=== PATIENT | male | born 1960 | race Caucasian/White ===

== ENCOUNTER 2023-11-06 08:43 | Observation (INO) ==
--- NOTE | 2023-10-08 09:41 | PAT Medication Instructions ---
Medication Instructions Date of Service October 08, 2023 Home Medications ashwagandha extract 120 mg capsule 500 mg PO QPM omega 8-qwm-ubr-fish oil 1,000 mg (120 mg-180 mg) capsule (Fish Oil) 1 cap PO HS shilajit 250 mg capsule 250 mg PO QAM MEDICATION INSTRUCTIONS: STOP taking 2 weeks before surgery ashwagandha extract 120 mg capsule 500 mg PO QPM omega 5-vqa-uja-fish oil 1,000 mg (120 mg-180 mg) capsule (Fish Oil) 1 cap PO HS shilajit 250 mg capsule 250 mg PO QAM Other Notes Remember: NOTHING TO EAT OR DRINK AFTER MIDNIGHT If you have any questions please call us at [phone] or [phone] or [phone] or [phone]
--- NOTE | 2023-10-13 09:01 | Anesthesiology Consultation ---
Date of Service October 13, 2023 Assessment & Plan (1) Encounter for pre-operative examination: - Outpatient joint assessment: Patient is currently scheduled for inpatient pathway. If re-evaluated and patient/surgeon requests outpatient pathway, patient is acceptable candidate for outpatient joint program from anesthesia standpoint pending surgeon's office assessment of pt motivation/support/completion of same day joint program preop requirements. Chart Review Chart Review: Acceptable Risk for Surgery and Patient seen in Pre Admission Testing Teaching & Discussion Pre-Anesthesia Teaching/Discussion Notes: Instructed NPO after midnight before surgery, except medications with 15 cc of water. Medication instructions provided according to the PAT guidelines. History Surgery Operation Date: 11/06/23 10:05 Proposed Procedures p Left Total Knee Arthroplasty - Amadeo Cervantes MD Height/Weight Height: 5 ft 6 in Weight: 92.2 kg Allergies Allergy/AdvReac Type Severity Reaction Status Date / Time No Known Allergies Allergy Unverified 10/13/23 09:10 Medications Home Medications Medication Instructions Recorded Confirmed Last Taken ashwagandha extract 120 mg capsule 500 mg PO QPM 10/06/23 10/06/23 Unknown omega 6-kjo-kvc-fish oil 1,000 mg 1 cap PO HS 10/06/23 10/06/23 Unknown (120 mg-180 mg) capsule (Fish Oil) shilajit 250 mg capsule 250 mg PO QAM 10/06/23 10/06/23 Unknown Past Medical History Medical History (Updated 10/13/23 @ 09:20 by Nina Bruce PA-C) Borderline hypertension (05/2023) reports at PCP visit was told this, has since lost 25 pounds with diet and exercise and states bp is 120-130s/80-90s Hx of cleft palate Hx of colonic polyps Hx of fracture of leg left Sleep-disordered breathing Patient denies h/o stroke, seizures, heart attack, heart failure, DM, blood clot s/DVTs or blood transfusions. Exercise / Class Metabolic Activity II 4-5 Yardwork/Stairs/Walk up hill (denies chest discomfort or shortness of breath with one flight of stairs) Past Family History Family History Other No pertinent family history Past Surgical History Surgical History H/O arthroscopic knee surgery (1989) x 2; left 1981, 1989 Hx of appendectomy (1976) Hx of colonoscopy with polypectomy Hx of oral surgery (1967) several to repair cleft palate Past Anesthesia History No Hx of Anesthesia Complications and No Family Hx of Anesthesia Complications History of PONV No Hx of PONV and No Hx of Motion Sickness Social History Smoking Status: Never smoker Do You Dip or Chew Tobacco: No Hx Alcohol Use: Yes alcohol intake frequency: a few times a month Hx Substance Use: No substance use type: does not use Review of Systems Patient denies chest pain, shortness of breath, dyspnea on exertion, reflux, fever, chills, cough, wheezing, or palpitations. Physical Exam Vital Signs Vitals BP 171/98 left arm sitting manual; 168/96 left arm sitting manual after patient rested with feet flat on floor P 66 TEMP 98.0 SP02 96% on RA RESP 17 Physical Patient resting comfortably in chair in no acute distress, alert and oriented, responding appropriately throughout visit Full cervical extension range of motion without pain TMD 3.5 finger breadths Mallampati Score 2 Dentition: implant left lower side, denies chipped or loose teeth, caps/crowns, or bridges Lungs: normal respiratory effort. Good air movement, clear throughout to auscultation, no adventitious breath sounds Cardiac: regular rate and rhythm, no murmurs noted Carotid arteries: negative bruit bilat Lab Results Anesthesia Preop Results Results Anesthesia Widget: WBC 6.91 K/ul (4.8-10.8) 10/13/23 Hgb 15.4 g/dl (14.0-18.0) 10/13/23 Hct 46.7 % (42.0-52.0) 10/13/23 Plt 233 K/uL (130-400) 10/13/23 Na 137 mmol/L (136-145) 10/13/23 K 4.0 mmol/L (3.5-5.1) 10/13/23 Cl 103 mmol/L (98-107) 10/13/23 CO2 29 mmol/L (21-32) 10/13/23 BUN 18 mg/dl (6-23) 10/13/23 Creat 1.15 mg/dl (0.6-1.4) 10/13/23 Glucose Level 95 mg/dl (70-99(Fasting)) 10/13/23 PT 10.8 Seconds (9.0-12.0) 10/13/23 PTT 28 Seconds (21-31) 10/13/23 INR 1.0 (0.9-1.1) 10/13/23 Urine Color Yellow 10/13/23 Urine Appearance Clear (Clear) 10/13/23 Urine pH 6.0 (4.5-7.5) 10/13/23 Urine Specific [place] 1.021 (1.000-1.030) 10/13/23 Urine Protein Negative (Negative) 10/13/23 Urine Glucose (UA) Negative (Negative) 10/13/23 Urine Ketones Negative (Negative) 10/13/23 Urine Blood Negative (Negative) 10/13/23 Urine Nitrite Negative (Negative) 10/13/23 Urine Bilirubin Negative (Negative) 10/13/23 Urine Urobilinogen Negative (Negative) 10/13/23 Urine Leukocyte Esterase Negative (Negative) 10/13/23 Blood Type B Positive 10/13/23 Antibody Screen NEGATIVE 10/13/23 Testing Electrocardiogram Date: 10/13/23 NSR, rate 63 bpm Chest X-Ray Date: 10/13/23 No acute process.
[~2023-11-06 08:43] MED LIST: BUPIVACAINE 0.5 % 5 MG/1 ML PF 10ML VIAL ONE; ROPIVACAINE 0.5% 5 MG/ML 30 ML VIAL ONE; dexAMETHasone 4 MG TAB PO SCH
[2023-11-06] MEDS: LR 60ML/HR IV SCH (08:44)
--- NOTE | 2023-11-06 09:01 | History & Physical Bridge Note ---
Date of Service November 06, 2023 History & Physical Bridge Note I have examined the patient, reviewed the History & Physical and in the interval since the performance of the History & Physical I have noted the following changes of clinical significance: no changes noted
[2023-11-06] MEDS: dexAMETHasone**PF** 10 MG/ML VIAL IV SCH (09:03)
[2023-11-06] MEDS: ACETAMINOPHEN 500 MG TAB PO SCH ×2 (09:03→15:46)
[2023-11-06] MEDS: CeleBREX 200 MG CAP PO SCH (09:03)
[2023-11-06] MEDS: traMADol HCL 50 MG TABLET PO SCH (09:03)
[2023-11-06] MEDS: FAMOTIDINE 20 MG TAB PO SCH (09:03)
[2023-11-06] MEDS: Scopolamine 1 MG TDSY TD SCH (09:04)
[2023-11-06] MEDS: LR 500ML BOLUS, THEN 15ML/HR IV SCH (09:04)
[2023-11-06] MEDS ORDERED: MIDAZOLAM HCL 1 MG/ML 2ML VIAL ONE (09:22)
[2023-11-06] MEDS ORDERED: fentaNYL citrate PF 100 MCG/2 ML VIAL ONE (09:22)
[2023-11-06] MEDS ORDERED: ONDANSETRON INJ 2 MG/ML 2 ML VIAL ONE (09:23)
[2023-11-06] MEDS ORDERED: PROPOFOL IV EMULSION 10 MG/ML 20 ML VIAL IV ONE ×2 (09:23→11:18)
[2023-11-06] MEDS ORDERED: HYDROmorphone INJ 1 MG/ML SYRINGE IV PRN (09:43)
[2023-11-06] MEDS ORDERED: ONDANSETRON INJ 2 MG/ML 2 ML VIAL IV PRN ×2 (09:43→13:48)
[2023-11-06] MEDS ORDERED: fentaNYL citrate PF 100 MCG/2 ML VIAL IV PRN (09:43)
[2023-11-06] MEDS ORDERED: ATROPINE SULFATE 0.1 MG/ML 10ML SYR IV PRN (09:43)
[2023-11-06] MEDS ORDERED: ePHEDrine sulfate 50 MG/ML AMP IV PRN (09:43)
[2023-11-06] MEDS: TRANEXAMIC ACID 1,000 MG **IV Pre-op IV SCH (09:45)
[2023-11-06] MEDS: ceFAZolin 2000MG 2,000 MG/15 ML SYR IV SCH ×2 (10:10→17:16)
[2023-11-06] MEDS: ORTHO JOINT ANESTHETIC ONE (10:36)
[2023-11-06] MEDS ORDERED: ePHEDrine sulfate 50 MG/5 ML SYR ONE (10:57)
--- OUTSIDE RECORDS SUMMARY | 2023-11-06 11:24 | External Medical Summary | Summary of Care ---
Author Name Unknown Organization [facility] Address [address] [place] [address] Phone [phone] Care Team Providers Care Butter Wrapper Name Role Phone Amadeo Rose MD Primary Care Provider + Encounter Details Date Type Department Care Team (Late st Contact Info) Description 10/27/2023 Telephone Family Practice [facility] [address] [facility] [id number] [facility] [address] [facility] [address] Allergies No known active allergiesdocumented as of this encounter (statuses as of 10/31/2023) Medications Medication Sig Dispensed Refills Start Date End Date Status Fish Oil 1000 MG Oral Capsule Take 1 Capsule by mouth in the morning. Active Ascorbic Acid ER 500 MG Oral Capsule Extended Release Take 500 mg by mouth daily. Active Ashwagandha 125 MG Oral Capsule Take by mouth. Active documented as of this encounter (statuses as of 10/31/2023) Active Problems Problem Noted Date Diagnosed Date Dyslipidemia, goal LDL below 130 11/29/2021 Well adult exam 05/05/2015 Overview: 09/24 colon WNL jamari 5y 06/21 COLON-10mm tubular adenoma. Jamari 3y. 04/22 ACC risk 5.5 % using 2015 labs Neoplasm of uncertain behavior of skin 04/28/201 5 Actinic keratosis 08/02/2014 Other seborrheic keratosis 08/02/2014 Family history of melanoma 05/05/2014 Obesity, Class I, BMI 30.0-34.9 (see actual BMI) 06/15/2013 DYSLIPIDEMIA, GOAL TO BE DETERMINED 03/21/2009 Overview: Per Lipid Taxonomy. ADVANCE DIRECTIVE INFORMATION 04/25/2006 Overview: Pt took booklet. Alcohol abuse, in remission 04/25/2006 FAMILY HX-GI MALIGNANCY 04/25/2006 documented as of this encounter (statuses as of 10/31/2023) Resolved Problems Problem Noted Date Diagnosed Date Resolved Date Prediabetes 05/20/2017 11/19/2018 Overview: Per Prediabetes protocol #1 Mixed dyslipidemia 04/25/2006 9 Overview: Per Lipid Taxonomy. documented as of this encounter (statuses as of 10/31/2023) Immunizations Name Administration Dates Next Due PPD 01/26/2008 Seasonal Influenza, PF, 6 M & above, IM , (FluLaval or Fluzone) 01/26/2021,02/12/2020,02/27/2019,2018 Seasonal Influenza, Split, I IV3, With Preserve, Inj 01/06/2016,01/19/2015,01/19/2014 TDAP (age 10 and older)(Boostrix) 05/23/2016 TDAP, Age 7 and older, IM (Adacel) 04/25/2006 Zoster Vaccine Recombinant (Shingrix) 08/22/2022 ,05/23/2022 documented as of this encounter Social History Tobacco Use Types Packs/Day Years Used Date Smoking Tobacco: Never Smokeless Tobacco: Never Comments:Pt states he tried it for approx. 6 months. Alcohol Use Standard Drinks/Week Comments Yes 0 (1 standard drink = 0.6 oz pure alcohol) 3-6 weekends 2 nights.. hx of heavy use PHQ-2 Answer Date Recorded PHQ Adult Total Score 0 05/29/2023 Hunger Vital Sign Answer Date Recorded Within the past 12 months, y ou worried that your food would run out before you got the money to buy more. Never true 05/23/19 23 Within the past 12 months, t he food you bought just didn't last and you didn't have money to get more. Never true 05/23/2022 Utilities Answer Date Recorded Do you have trouble paying y our heating, water, or electric bill? (Adult - for ages 18 years and over) Not on file 09/23/2023 Is your family able to pay t he heat, water, or electric bill? (Household - for ages 0-17 years) Not on file 09/23/2023 Does your family have access to good internet? (Household - for ages 0-17 years) Not on file 09/23/2023 Social Connections Answer Date Recorded How often do you feel lonely or isolated from those around you? (Adult - for ages 18 years and over) Not on file 09/23/2023 Sex and Gender Information Value Date Recorded Sex Assigned at Male 05/23/2022 9:26 AM EST Gender Identity Male 05/23/2022 9:26 AM EST Sexual Orientation Straight 05/23/2022 9: 26 AM EST Job Start Date Occupation Industry Not on file Not on file Not on file documented as of this encounter Miscellaneous Notes * Telephone Encounter - Bre Rose CRNP - 10/31/2023 10:09 AM EDT We received copy of his OV note - form and results for pre op already reviewed signed and faxed * Telephone Encounter - Anne-Marie Mckenzie LPN - 10/31/2023 8:41 AM EDT Received [facility] pre op results--placed in e [employer] mailbox. * Telephone Encounter - Anne-Marie Mckenzie LPN - 10/28/2023 11:51 AM EDT Sent pre op form to fax number on form. * Telephone Encounter - Anne-Marie Mckenzie LPN - 10/27/2023 9:30 AM EDT Called [facility]-- LM to have them fax the below information. Awaiting to receive. * Telephone Encounter - Bre Rose CRNP - 10/27/2023 9:06 AM EDT I have his [facility] form on my desk Please contact [facility] to obtain results of his preadmission testing from 10/13/23 - labs, EKG, CXR. Thank you. documented in this encounter Plan of Treatment Upcoming Encounters Date Type Department Care Team (Late st Contact Info) Description 06/03/2024 8:20 AM EST Office Visit Family Practice [facility] [address] [place] [id number] Amadeo Rose MD [address] [place] [address] Scheduled Procedures Name Priority Associated Diagnoses Date/Ti me COLONOSCOPY FLEXIBLE PROXIMAL DIAGNOSTIC Recall History of colon polyps Health Maintenance Due Date Last Done Comments Cologuard 2006 Fecal Occult Blood Test 2006 Sigmoidoscopy 2006 Influenza Vaccine (FLU shot) (#1) 2023 01/26/2021, 02/12/2020, 02/27/2019, Additional history exists Depression Screening 05/29/2024 05/29/2023 Colonoscopy 09/12/2024 09/13/2019, 11/2019, 06/10/2016, Additional history exists Colorectal Cancer Screening 09/12/2024 DTaP,Tdap,and Td Vaccines (3 - Td or Tdap) 05/23/2026 05/23/2016, 04/25/2006 Diabetes Screening 06/23/2026 06/24/2023, 0 11/19/2021, 10/13/2018, Additional history exists Lipid Panel 06/23/2028 06/24/2023, 11/05, 10/13/2018, Additional history exists RETIRED - COLONOSCOPY-EVERY 5 YRS AGES 18-100 Discontinued 09/13/2019, 09/13/2019, 06/10/2016, Additional history exists Zoster Vaccines Completed 08/22/2022, 05/23/2022 COVID-19 Vaccine Discontinued HPV (Gardasil) Vaccine Aged Out No lo nger eligible based on patient's age to complete this topic Hepatitis B Vaccine Aged Out No longe r eligible based on patient's age to complete this topic MENINGOCOCCAL (MENACTRA/MENVEO) Aged Out No longer eligible based on patient's age to complete this topic Pneumococcal Vaccine: Pediatrics (0 to 5 Years) and At-Risk Patients (6 to 64 Years) Aged Out No longer eligible based on patient's age to complete this topic documented as of this encounter Medical Devices Not on filedocumented as of this encounter Care Teams Butter Wrapper Relationship Specialty Start Date End Date Amadeo Rose MD [address] [place] [address] PCP - General Family Medicine 05/05/14 documented as of this encounter
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
--- OUTSIDE RECORDS SUMMARY | 2023-11-06 11:24 | External Medical Summary | Summary of Care ---
Author Name Unknown Organization [facility] Address [address] [place] [address] Phone [phone] Care Team Providers Care Foam Cutting Supervisor Name Role Phone Amadeo Rose MD Primary Care Provider + Encounter Details Date Type Department Care Team (Late st Contact Info) Description 10/27/2023 Telephone Family Practice [facility] [address] [facility] [id number] [address] [facility] [address] Allergies No known active allergiesdocumented as of this encounter (statuses as of 10/28/2023) Medications Medication Sig Dispensed Refills Start Date End Date Status Fish Oil 1000 MG Oral Capsule Take 1 Capsule by mouth in the morning. Active Ascorbic Acid ER 500 MG Oral Capsule Extended Release Take 500 mg by mouth daily. Active Ashwagandha 125 MG Oral Capsule Take by mouth. Active documented as of this encounter (statuses as of 10/28/2023) Active Problems Problem Noted Date Diagnosed Date [...] as of this encounter (statuses as of 10/28/2023) Resolved Problems Problem Noted Date Diagnosed Date Resolved Date Prediabetes 05/20/2017 11/19/2018 Overview: Per Prediabetes protocol #1 Mixed dyslipidemia 04/25/2006 9 Overview: Per Lipid Taxonomy. documented as of this encounter (statuses as of 10/28/2023) Immunizations Name Administration Dates Next Due PPD [...] encounter Miscellaneous Notes * Telephone Encounter - Anne-Marie Mckenzie LPN - 10/28/2023 11:51 AM EDT Sent pre op form to fax number on form. * Telephone Encounter - Anne-Marie Mckenzie LPN - 10/27/2023 9:30 AM EDT Called [facility]-- to have them fax the below information. [...] 06/03/2024 8:20 AM EST Office Visit Family [facility] [address] [place] [address] Amdaeo Rose MD [address] [place] [address] Scheduled Procedures Name Priority Associated Diagnoses Date/Ti me COLONOSCOPY FLEXIBLE PROXIMAL DIAGNOSTIC Recall History of colon polyps Health Maintenance Due Date Last Done Comments Cologuard 2006 Fecal Occult Blood Test 2006 Sigmoidoscopy 2006 Influenza Vaccine (FLU shot) (#1) 2023 01/26/2021, 02/12/2020, 02/27/2019, Additional history exists Depression Screening 05/29/2024 05/29/2023 Colonoscopy 09/12/2024 09/13/2019, 06/0 11/2019, 06/10/2016, Additional history exists Colorectal Cancer Screening 09/12/2024 DTaP,Tdap,and Td Vaccines (3 - Td or Tdap) 05/23/2026 05/23/2016, 04/25/2006 Diabetes Screening 06/23/2026 06/24/2023, 0 11/19/2021, 10/13/2018, Additional history exists Lipid Panel 06/23/2028 06/24/2023, 0808/2021, 10/13/2018, Additional history exists RETIRED - COLONOSCOPY-EVERY [...] filedocumented as of this encounter Care Teams Foam Cutting Supervisor Relationship Specialty Start Date End Date Amadeo Rose MD [address] [place] [address] PCP - General Family Medicine 05/05/14 documented as of this encounter
--- OUTSIDE RECORDS SUMMARY | 2023-11-06 11:24 | External Medical Summary | Summary of Care ---
Author Name Unknown Organization [facility] Address [address] [place] [address] Phone [phone] Care Team Providers Care Quality Review Specialist Name Role Phone Amadeo Rose MD Primary Care Provider + Encounter Details Date Type Department Care Team (Late st Contact Info) Description 11/03/2023 Orders Only [facility] Research Department [address] [place] [address] Jazmín Hawkins CHRA [employer] [facility] Other*[id number] Allergies No known active allergiesdocumented as of this encounter (statuses as of 11/03/2023) Medications Medication Sig Dispensed Refills Start Date End Date Status Fish Oil 1000 MG Oral Capsule Take 1 Capsule by mouth in the morning. Active Ascorbic Acid ER 500 MG Oral Capsule Extended Release Take 500 mg by mouth daily. Active Ashwagandha 125 MG Oral Capsule Take by mouth. Active documented as of this encounter (statuses as of 11/03/2023) Active Problems Problem Noted Date Diagnosed Date Dyslipidemia, goal LDL below 130 11/29/2021 Well adult exam 05/05/2015 Overview: 09/24 colon WNL jamari 5y 06/21 COLON-10mm tubular adenoma. Jamari 3y. 04/22 ACC risk 5.5 % using 2015 labs Neoplasm of uncertain behavior of skin 5 Actinic keratosis 08/02/2014 Other seborrheic keratosis 08/02/2014 Family history of melanoma 05/05/2014 Obesity, Class I, BMI 30.0-34.9 (see actual BMI) 06/15/2013 DYSLIPIDEMIA, GOAL TO BE DETERMINED 03/21/2009 Overview: Per Lipid Taxonomy. ADVANCE DIRECTIVE INFORMATION 04/25/2006 Overview: Pt took booklet. Alcohol abuse, in remission 04/25/2006 FAMILY HX-GI MALIGNANCY 04/25/2006 documented as of this encounter (statuses as of 11/03/2023) Resolved Problems Problem Noted Date Diagnosed Date Resolved Date Prediabetes 05/20/2017 11/19/2018 Overview: Per Prediabetes protocol #1 Mixed dyslipidemia 04/25/2006 9 Overview: Per Lipid Taxonomy. documented as of this encounter (statuses as of 11/03/2023) Immunizations Name Administration Dates Next Due PPD [...] on file documented as of this encounter Plan of Treatment Upcoming Encounters Date Type Department Care Team (Late st Contact Info) Description 06/03/2024 8:20 AM EST Office Visit Family Practice [facility] [address] [facility] [place] [address] Amadeo Rose MD [address] [facility] [place] [address] Scheduled Orders Name Type Priority Associated Diagnoses Orde r Schedule MYCODE INITIAL ADULT Lab Routine MyCode Research Other*[id number] Expected: 11/03/2023 (Approximate), Expires: 11/22/2024 Scheduled Procedures Name Priority Associated Diagnoses Date/Ti [...] Not on filedocumented as of this encounter Visit Diagnoses Diagnosis MyCode Research Other*[id number] documented in this encounter Care Teams Quality Review Specialist Relationship Specialty Start Date End Date Amadeo Rose MD [address] [place] [address] PCP - General Family Medicine 05/05/14 documented as of this encounter
--- OUTSIDE RECORDS SUMMARY | 2023-11-06 11:24 | External Medical Summary | Summary of Care ---
Author Name Unknown Organization [facility] Address [address] [place] [address] Phone [phone] Care Team Providers Care Surgical Assistant Certified Name Role Phone Amadeo Rose MD Primary Care Provider + Reason for Visit * Reason Comments pre-op exam [facility]: Knee total arthroplasty on 11/06/[address] Cervantes Encounter Details Date Type Department Care Team (Late st Contact Info) Description 10/27/2023 8:40 AM EDT Office Visit Family Practice [facility] [address] [facility] [address] Bre Rose CRNP [address] [facility] [place] [address] Pre-op evaluation*; Chronic pain of left knee; Dyslipidemia; Elevated blood pressure reading; Snoring Allergies No known active allergiesdocumented as of this encounter (statuses as of 10/28/2023) Medications Medication Sig Dispensed Refills Start Date End Date Status Fish Oil 1000 MG Oral Capsule Take 1 Capsule by mouth in the morning. Active Ascorbic Acid ER 500 MG Oral Capsule Extended Release Take 500 mg by mouth daily. Active Ashwagandha 125 MG Oral Capsule Take by mouth. Activ e Cyclobenzaprine HCl 5 MG Oral Tablet (Flexeril)Indicat ions:Spasm of muscle,Neck pain Take 1 Tablet by mouth 3 times a day as needed for Muscle spasms. 30 Tablet 03/01/2023 10/27/2023 Discontinued documented as of this encounter (statuses as [...] on file documented as of this encounter Last Filed Vital Signs Vital Sign Reading Time Taken Comments Blood Pressure 140/90 10/27/2023 8:53 AM EDT Pulse 67 10/27/2023 8:43 AM EDT Temperature 36.2 C (97.2 F) 10/27/2023 8:43 AM ED T Respiratory Rate - - Oxygen Saturation 98% 10/27/2023 8:43 AM EDT Inhaled Oxygen Concentration - - Weight 92.2 kg (203 lb 3.2 oz) 10/27/2023 8:43 A M EDT Height 168.9 cm (5' 6.5") 10/27/2023 8:43 AM EDT Body Mass Index 32.31 10/27/2023 8:43 AM EDT documented in this encounter H&P Notes * Bre Rose CRNP - 10/27/2023 8:52 AM EDT Images from the original note were not included. Pre-Operative Medical Evaluation Procedure Information Type of Surgery: L total knee Referring Physician / Surgeon: JEREMY Sandoval Date of procedure: 11/06/23 Brief History of Present Illness: Here for pre op as above Recently lost 25lb through diet/lifestyle Home BP log for review -- WNL. A little elevated here today. States he "misbehaved" over weekend with his diet and had more salt Review of Systems Constitutional: Negative for chills, fever and unexpected weight change. HENT: Negative for congestion and sore throat. Eyes: Negative for discharge and redness. Respiratory: Negative for chest tightness, shortness of breath and wheezing. Cardiovascular: Negative for chest pain, palpitations and leg swelling. Gastrointestinal: Negative for abdominal distention, abdominal pain, blood in stool, constipation, diarrhea and vomiting. Genitourinary: Negative for dysuria. Musculoskeletal: Negative for arthralgias and myalgias. Skin: Negative for rash. Neurological: Negative for dizziness, weakness, light-headedness and headaches. Hematological: Negative for adenopathy. Psychiatric/Behavioral: Negative for confusion. Medical History Problem List: Dyslipidemia, goal LDL below 130 (11/29/2021) Prediabetes (05/20/2017) Well adult exam (05/05/2015) Neoplasm of uncertain behavior of skin (08/02/2014) Actinic keratosis (08/02/2014) Other seborrheic keratosis (08/02/2014) Family history of melanoma (05/05/2014) Obesity, Class I, BMI 30.0-34.9 (see actual BMI) (06/15/2013) DYSLIPIDEMIA, GOAL TO BE DETERMINED (03/21/2009) ADVANCE DIRECTIVE INFORMATION (04/25/2006) Alcohol abuse, in remission (04/25/2006) FAMILY HX-GI MALIGNANCY (04/25/2006) Mixed dyslipidemia (04/25/2006) Current Medications Ashwagandha 125 MG Oral Capsule, Take by mouth. Ascorbic Acid ER 500 MG Oral Capsule Extended Release, 500 mg, Oral, Daily(AM) Fish Oil 1000 MG Oral Capsule, 1,000 mg, Oral, Daily(AM) Allergies: Patient has no known allergies. Past Medical History: has a past medical history of Alcohol abuse, in remission (04/25/2006), Basal cell carcinoma (BCC),Dyslipidemia, goal LDL below 130 (11/29/2021), Family history of melanoma (05/05/2014), Mixed dyslipidemia, and Obesity, Class I, BMI 30.0-34.9 (see actual BMI) (06/15/2013). Past Surgical History: has a past surgical history that includes reconstruct cleft palate; removal of appendix; knee arthroscopy/debridement; colonoscopy (07/2006); Colonoscopy, Diagnostic (Rectum) (06/10/2016); and Colonoscopy, Diagnostic (Rectum) (09/13/2019). Social History: reports that he has never smoked. He has never used smokeless tobacco. He reports current alcohol use. He reports current drug use. Family History: family history includes Alcohol and Other Disorders Associated in his brother and father; Cancer inhis grandfather (maternal) and mother; Cancer (age of onset: 74) in his father; Diabetes in his father; Heart Disorder (age of onset: 60) in his father; Hypertension in his father; Lung cancer (age of onset: 62) in his sister; Multiple myeloma (age of onset: 58) in his sister; pulm fibrosis in his sister; pulmonary fibrosis in his brother. Anesthesia History Type of Anesthesia: General Endotracheal and Caudal block Anesthesia reaction: No History of surgical complications: none Personal history of venous thromboembolic disease: none Physical Exam Vitals: 10/27/23 0843 10/27/23 0853 Temp: 36.2 C (97.2 F) Pulse: 67 SpO2: 98% BP: 142/92 140/90 BMI: 32.31 Physical Exam Vitals reviewed. Constitutional: Appearance: Normal appearance. HENT: Head: Normocephalic and atraumatic. Right Ear: Tympanic membrane, ear canal and external ear normal. Left Ear: Tympanic membrane, ear canal and external ear normal. Nose: Nose normal. Mouth/Throat: Mouth: Mucous membranes are moist. Comments: Cleft palate device Eyes: Extraocular Movements: Extraocular movements intact. Conjunctiva/sclera: Conjunctivae normal. Pupils: Pupils are equal, round, and reactive to light. Cardiovascular: Rate and Rhythm: Normal rate and regular rhythm. Heart sounds: Normal heart sounds. Pulmonary: Effort: Pulmonary effort is normal. Breath sounds: Normal breath sounds. Abdominal: General: There is no distension. Palpations: Abdomen is soft. Tenderness: There is no abdominal tenderness. Musculoskeletal: Cervical back: Neck supple. Right lower leg: No edema. Left lower leg: No edema. Lymphadenopathy: Cervical: No cervical adenopathy. Skin: General: Skin is warm and dry. Capillary Refill: Capillary refill takes less than 2 seconds. Findings: No rash. Neurological: General: No focal deficit present. Mental Status: He is alert and oriented to person, place, and time. Psychiatric: Behavior: Behavior normal. Thought Content: Thought content normal. Labs reviewed and are significant for: WNL EKG by my review is significant for: WNL Surgical Risk Scoring Revised Cardiac Risk Index (RCRI) High-risk type of surgery (examples include vascular and any open intraperitoneal or intrathoracic procedures): 0=No History of ischemic heart disease (history of myocardial infarction or positive exercise test, current compliant of chest pain considered to be secondary to myocardia ischemia, use of nitrate therapy, or ECG with pathological Q waves; do not count prior coronary revascularization procedure unless one of the other criteria for ischemic heart disease is present): 0=No History of heart failure: 0=No History of cerebrovascular disease: 0=No Diabetes mellitus requiring treatment with insulin: 0=No Preoperative serum creatinine >2.0 mg/dL (177 micromol/L): 0=No Pt has revised cardiac index score of: No Risk Factors- 0.4% (95% CI: 0.1-0.8) Screening for Obstructive Sleep Apnea (STOP-BANG) Do you Snore loudly? 0=No Do you often feel Tired, Fatigued, or Sleep? 1=Yes Has anyone Observed you Stop Breathing or Choking/Gasping during sleep? 1=Yes Do you have or are you being treated for High Blood Pressure? 0=No borderline BMI over 35? 0=No Age older than 50? 1=Yes Neck size large? (For males - 17 inches or larger, For females - 16 inches or larger) 0=No Male? 1=Yes Score 0-2:low risk PATRICK, 3-4: intermediate risk of PATRICK, 5-8: high risk PATRICK 4 Assessment and Plan Pre-op evaluation Reviewed pre op testing results -- EKG, labs, CXR are WNL No contraindications to above-listed procedure Chronic pain of left knee Surgery planned Dyslipidemia Improved with diet/lifestyle. Continue these efforts Snoring Stopbang 4 - hx cleft palate surgery and device in place May be at risk for perioperative apnea Will consider sleep med referral Elevated blood pressure reading Reviewed home log -- generally below 130/80 Functional Assessment They are able to walk up a flight of stairs, walk two blocks at a moderate pace, do heavy house work like vacuuming, and grocery shop. The patient's functional status is good (greater than 4 METS). 1 MET: 4 METs: 4-10 METs: Can take care of self, such as eat, dress or use the toilet. Can walk to block or go up a flight of steps. Can do heavy house work. Surgical Risk Assessment Patient is low medical risk for the listed procedure. Medication adjustments: Stopped supplements 2 weeks prior to surgery Additional consults or testing: None - consider sleep apnea testing post-op. Prefers to discuss with pcp at next annual visit. documented in this encounter Nursing Notes * Anne-Marie Mckenzie LPN - 10/27/2023 8:38 AM EDT The patient has been properly identified by confirmation of name and date of . Chief Complaint Patient presents with pre-op exam [facility]: L Knee total arthroplasty on 11/06/[address] Cervantes [facility] pre op appt in media for review from 10/12. documented in this encounter Plan of Treatment Upcoming Encounters Date Type Department Care Team (Late st Contact Info) Description 06/03/2024 8:20 AM EST Office Visit [facility] [address] [place] [address] Amadeo Rose MD [address] [place] [address] Scheduled Procedures Name Priority Associated Diagnoses Date/Ti me COLONOSCOPY FLEXIBLE PROXIMAL DIAGNOSTIC Recall History of colon polyps Health Maintenance Due Date Last Done Comments Cologuard 2006 Fecal Occult Blood Test 2006 Sigmoidoscopy 2006 Influenza Vaccine (FLU shot) (#1) 2023 01/26/2021, 02/12/2020, 02/27/2019, Additional history exists Depression Screening 05/29/2024 05/29/2023 Colonoscopy 09/12/2024 09/13/2019, 0611/2019, 06/10/2016, Additional history exists Colorectal Cancer Screening [...] as of this encounter Visit Diagnoses Diagnosis Pre-op evaluation- Primary Preoperative examination, unspecified Chronic pain of left knee Pain in joint, lower leg Dyslipidemia Other and unspecified hyperlipidemia Elevated blood pressure reading Elevated blood pressure reading without diagnosis of hypertension Snoring Other dyspnea and respiratory abnormality documented in this encounter Care Teams Surgical Assistant Certified Relationship Specialty Start Date End Date Amadeo Rose MD [address] [place] [address] PCP - General Family Medicine 05/05/14 documented as of this encounter
--- OUTSIDE RECORDS SUMMARY | 2023-11-06 11:24 | External Medical Summary | Summary of Care ---
Author Name Unknown Organization [facility] Address [address] [place] [address] Phone [phone] Care Team Providers Care Deburrer Name Role Phone Amadeo Rose MD Primary Care Provider + Encounter Details Date Type Department Care Team (Late st Contact Info) Description 10/27/2023 Telephone [facility] [address] [facility] [phone] [facility] [address] [facility] [address] Allergies No known active allergiesdocumented as of [...] LPN - 10/31/2023 8:41 AM EDT Received [facility] pre op results--placed in e [employer] mailbox. * Telephone Encounter - Anne-Marie Mckenzie LPN - 10/28/2023 11:51 AM EDT Sent pre op form to fax number on form. * Telephone Encounter - Anne-Marie Mckenzie LPN - 10/27/2023 9:30 AM EDT Called [facility]-- LM to have them fax the [...] 06/03/2024 8:20 AM EST Office Visit Family [facility] [address] [place] [address] Amadeo Rose MD [address] [place] [address] Scheduled Procedures Name Priority Associated Diagnoses Date/Ti [...] filedocumented as of this encounter Care Teams Deburrer Relationship Specialty Start Date End Date Amadeo Rose MD [address] [place] [address] PCP - General Family Medicine 05/05/14 documented as of this encounter
--- OUTSIDE RECORDS SUMMARY | 2023-11-06 11:24 | External Medical Summary | Summary of Care ---
Author Name Unknown Organization [facility] Address [address] [place] [address] Phone [phone] Care Team Providers Care Systems Software Specialist Name Role Phone Amadeo Rose MD Primary Care Provider + Encounter Details Date Type Department Care Team (Late st Contact Info) Description 10/27/2023 Telephone Family Practice [facility] [address] [facility] [phone] [facility] [address] [facility] [address] Allergies No known active allergiesdocumented as of this encounter (statuses as of 10/27/2023) Medications Medication Sig Dispensed Refills Start Date End Date Status Fish Oil 1000 MG Oral Capsule Take 1 Capsule by mouth in the morning. Active Ascorbic Acid ER 500 MG Oral Capsule Extended Release Take 500 mg by mouth daily. Active Ashwagandha 125 MG Oral Capsule Take by mouth. Active documented as of this encounter (statuses as of 10/27/2023) Active Problems Problem Noted Date Diagnosed Date [...] as of this encounter (statuses as of 10/27/2023) Resolved Problems Problem Noted Date Diagnosed Date Resolved Date Prediabetes 05/20/2017 11/19/2018 Overview: Per Prediabetes protocol #1 Mixed dyslipidemia 04/25/2006 9 Overview: Per Lipid Taxonomy. documented as of this encounter (statuses as of 10/27/2023) Immunizations Name Administration Dates Next Due PPD [...] 10/27/2023 9:30 AM EDT Called [facility]-- LM to have them fax the below [...] 06/03/2024 8:20 AM EST Office Visit Family [facility] [address] [place] [address] Amadeo Rose MD [address] [place] [address] Scheduled Procedures Name Priority Associated Diagnoses Date/Ti [...] filedocumented as of this encounter Care Teams Systems Software Specialist Relationship Specialty Start Date End Date Amadeo Rose MD [address] [place] [address] PCP - General Family Medicine 05/05/14 documented as of this encounter
--- OUTSIDE RECORDS SUMMARY | 2023-11-06 11:24 | External Medical Summary | Summary of Care ---
Author Name Unknown Organization [facility] Address [address] [place] [address] Phone [phone] Care Team Providers Care Back Sizer Name Role Phone Amadeo Rose MD Primary Care Provider + Reason for Visit * Reason Comments pre-op exam [facility]: Knee total arthroplasty on 11/06/[address] Cervantes Encounter Details Date Type Department Care Team (Late st Contact Info) Description 10/27/2023 8:40 AM EDT Office Visit [facility] Practice [facility] [address] [facility] [address] Bre [facility] CR[facility] [address] [place] [address] Pre-op evaluation*; Chronic pain of left knee; [...] Chief Complaint Patient presents with pre-op exam [facility]: L Knee total arthroplasty on 11/06/[address] Cervantes [facility] pre op appt in media for review from 10/12. documented in this encounter Plan of Treatment Upcoming Encounters Date Type Department Care Team (Late st Contact Info) Description 06/03/2024 8:20 AM EST Office Visit [facility] [address] [place] [address] Amadeo Rose MD [address] [place] [address] Scheduled Procedures Name Priority Associated Diagnoses Date/Ti [...] abnormality documented in this encounter Care Teams Back Sizer Relationship Specialty Start Date End Date Amadeo Rose MD [address] [place] [address] PCP - General Family Medicine 05/05/14 documented as of this encounter
[2023-11-06] MEDS ORDERED: PHENYLEPHRINE 100MCG/ML 10ML SYR IV ONE (11:29)
[2023-11-06] MEDS: ROPIV 0.5% 246mg, Ketorolac 30mg, EPINEPHrine 0.5mg in NSS INFIL SCH (11:31)
[2023-11-06] MEDS: TRANEXAMIC ACID 1,000 MG **IV Intra-op IV SCH (11:40)
--- NOTE | 2023-11-06 12:09 | Operative Report ---
Post Operative Report Pre & Post Diagnosis Operation Date: 11/06/23 10:25 Pre-Op Diagnosis: Left Knee Osteoarthritis Post-Op Diagnosis: Left Knee Osteoarthritis I identified the patient and participated in the time-out.: Yes Procedure Operation Date: 11/06/23 10:25 Actual Procedures p Left Total Knee Arthroplasty(Left) - Amadeo Cervantes MD Surgeon Amadeo Cervantes MD Soloist Dancer Kayla Gan PA-C. No resident or fellow was available to assist. Estimated Blood Loss 100 Findings Consistent with Post-Op Diagnosis Specimens Bone and soft tissue contents, left knee Anesthesia Type Spinal MAC Complications none Disposition Disposition: Recovery Room Indications 62-year-old male with left knee pain refractory to conservative management. X- rays demonstrate [id number] disease and tricompartmental osteophyte formation as well as varus malalignment of his knee. I had a long discussion with him about the diagnosis and treatment options. After reviewing all these he elected to proceed with surgery. All questions were answered. Informed consent was signed. Description of Procedure Patient was identified in the preoperative holding area where the surgical site, left knee, was marked. Spinal anesthetic was placed by anesthesia. Patient was brought back to the operating room, placed on the operating room table, and IV sedation was administered. A bump was placed underneath the ipsilateral hip. All bony prominences were padded. Perioperative antibiotics and tranexamic acid were administered. Exam under anesthesia was performed. This demonstrated varus deformity of approximately 10 degrees. Range of motion arc was approximately 15 degrees to 95 degrees. Stable to varus and valgus at 30 degrees. The surgical site was prepped and draped in the normal sterile fashion. Prior to incision a multidisciplinary timeout was called. All in the room were in agreement. We began by exsanguinating the limb with an Esmarch bandage. Tourniquet was inflated to 250 mmHg. A 14 cm long incision was made over the anterior aspect of the knee. I dissected through the subcutaneous tissues to the level of the fascia. Full-thickness flaps were raised above the fascia. A median parapatellar arthrotomy was made. Half the fat pad was excised. A medial release was performed with Bovie electrocautery on the proximal tibia. Synovitis in the knee and suprapatellar pouch was removed. The patella was then everted and held with 2 towel clips. Moderate osteoarthritis was noted the patella with marginal osteophytes. The thickness of the patella was measured at 26 mm. Patellar resection was performed. Caliper showed the patella thickness now to be 15 mm. A size 41 trial was placed and had a great fit. The 3 drill holes were placed then the trial button was placed. The patellar thickness was now 26 mm which I was very happy with. The patellar trial was then removed, and the knee was flexed up. There was severe osteoarthritis [id number] in the medial compartment. There was an approximately 5 mm depth and 25 mm diameter concave depression in the posterior medial aspect of the proximal tibia. ACL was absent. Marginal osteophytes were noted diffusely moderately severe osteoarthritis in the lateral compartment. Retractors were placed to protect the MCL and LCL. Osteophytes were removed from the femoral condyles and intercondylar notch. The ACL and PCL were excised. Intramedullary drill guide was drilled into the femur. Distal femoral cutting guide was placed set at 5 degrees of valgus to resect 11 mm off the distal femur. Distal femoral resection was made without difficulty. The tibia was then exposed. The lateral meniscus was sharply excised. The tibial cutting jig was positioned in line with the tibial shaft in the coronal plane and with 3 degrees of posterior slope in the sagittal plane to resect 4 mm off the medial, compartment excepting the fact that this would not completely resect the concave depression, which we would plan on filling with cement if needed. The jig was then pinned in position and the tibial cut was made. We then brought the knee into full extension. Lamina spreaders were placed. The medial meniscus was excised. The extension block was then placed for 6 mm thickness poly. This gave us full extension and excellent stability to varus and valgus stress. Next the extension block was removed, the knee was flexed up, collateral ligaments were protected, and the epicondylar axis and Whitesides line were marked out on the distal femoral cut. Femoral sizing guide was placed. Exter nal rotation was set at 3 degrees so that the posterior cut would be parallel with the epicondylar axis and perpendicular with Whitesides line. The patient sized to a size 6 femur. 2 pins were then placed through the jig into the distal femur. The jig was removed and the appropriately sized 4-in-1 cutting jig was placed over the pins, then fixated to the bone using threaded, headed pins. We confirmed that we would not notch the femur with our anterior cut. Our 4 cuts were then made. The cutting jig was removed. The flexion block was then placed with the knee held at 90 degrees. There was excellent stability to varus and valgus at 90 degrees with no gapping medially or laterally. Next the box cutting jig was placed on the distal femur. The box cut was made and the femoral trial was impacted into position. Lug holes were drilled in the distal femur. We then reexposed the tibia. The tibia was sized to a 6 for a fixed-bearing component. The tibial tray with a 6 mm thickness polyethylene liner was placed on the cut tibial surface and the knee was brought through a full range of motion. There was excellent stability to varus valgus stress throughout a full range of motion, which was approximately 0 to 120 degrees degrees. Bovie electrocautery was used to juliane the tibia at the site where the tibial tray rested in full extension. We then flexed up the knee, removed the polyethylene liner, and pinned the tibial tray into position to match the cautery juliane. The intramedullary drill followed by the keel punch were used to prepare the tibia. Next the trial components were removed. I then injected the posterior capsule and periosteum with the periarticular injection cocktail. The bone cuts were then irrigated and dried while the cement was mixed on the back table. The femoral component was cemented on first. Excess cement was removed. A lap sponge was placed over the femoral component for protection, then the tibia was subluxated anteriorly. The all polyethylene tibial component was then cemented in place. Again excess cement was removed. The knee was brought into full extension and held there until the cement cured. The patella was cemented and clamped. Dilute Betadine solution was then allowed to soak in the knee while the cement cured. Once the cement was fully cured, the knee was irrigated out, the tourniquet was let down and meticulous hemostasis was ensured. The knee was brought through a full range of motion. I was were very happy with the patella tracking and the stability. We then began to close. Interrupted 0 Vicryl suture was used to repair the patellar retinaculum in [id number] fashion. The quadriceps and patellar tendons were run with #1 Vicryl. The deep dermal layer was closed with interrupted 2-0 Vicryl. D ermabond and Zipline was used for the skin, followed by a Silverlon dressing. A compressive David wrap was placed and the knee was placed into a knee immobilizer. Patient's sedation was lifted and was transferred to recovery room in stable condition. Summary of implants: Depuy Attune Posterior Stabilized Cemented Femur, size 6 left Attune All-polyethylene tibial component, posterior stabilized 6 mm thickness, size 6 Attune patella medialized dome, size 41 2 batches of simplex high viscosity bone cement Postoperative course: Patient will be admitted to the floor for pain control and monitoring. Weightbearing as tolerated with a walker with no knee range of motion for 48 hours. Aspirin for DVT prophylaxis. I attest to the content of the Intraoperative Record and any orders documented therein. Any exceptions are noted below.
--- NOTE | 2023-11-06 12:12 | Operative Report ---
Post Operative Report Pre & Post Diagnosis Operation Date: 11/06/23 10:25 Pre-Op Diagnosis: Left Knee Osteoarthritis Post-Op Diagnosis: Left Knee Osteoarthritis I identified the patient and participated in the time-out.: Yes Procedure Operation Date: 11/06/23 10:25 Actual Procedures p Left Total Knee Arthroplasty(Left) - Amadeo Cervantes MD Surgeon Amadeo Cervantes M.D. Executive Vice President And Chief Financial Officer Kayla Gan PA-C. No resident or fellow was available to assist. Estimated Blood Loss 100 Findings Consistent with Post-Op Diagnosis Specimens Bone and soft tissue, prepatellar synovium Anesthesia Type MAC Spinal Regional Description of Procedure Patient was taken to the operating room placed under IV sedation with spinal anesthesia and peripheral nerve block. He was given 2 g of IV Ancef for surgical prophylaxis. He was given 1 g of TXA preoperatively. Time out was performed. He was prepped and draped in routine sterile fashion. Is present during the entire case and assisted with positioning, tissue retraction, trialing of implants, hardware implantation, irrigation and closure. Please see Dr. Cervantes's operative report for further details regarding today's procedure. Patient was awakened and transferred to the Recovery room in stable condition. I attest to the content of the Intraoperative Record and any orders documented therein. Any exceptions are noted below.
--- NOTE | 2023-11-06 12:27 | Anesthesiology Progress Note ---
Date of Service November 06, 2023 Anesthesia Post Procedure Vital Signs Vital Signs: Temp Pulse Pulse Resp BP BP Pulse Ox 11/06/23 12:15 84 19 117/70 94 11/06/23 12:07 36.7 C 86 14 112/73 92 11/06/23 08:55 36.7 C 84 18 178/118 H 174/110 H 96 O2 Del Method O2 Flow Rate 11/06/23 12:15 Oxymask 13 11/06/23 12:07 Oxymask 13 11/06/23 08:55 Room Air Transfer of Care Handoff Completed per policy Notes Mental Status: alert / awake / arousable and participated in evaluation Patient Amnestic to Procedure: Yes Nausea / Vomiting: adequately controlled Pain: adequately controlled Airway Patency, RR, SpO2: stable & adequate BP & HR: stable & adequate Hydration State: stable & adequate Neuraxial Anesthesia: was administered and sensory block is resolving Anesthetic Complications: no major complications apparent and Pt Satisfied with anesthetic care
--- NOTE | 2023-11-06 12:46 | XRay Report ---
XR knee LT 1 or 2V routine HISTORY: 62 years-old Male Surgical Post Op left knee are the posterior COMPARISON: 10/13/2023 TECHNIQUE: 2 views of the left knee FINDINGS: Healed chronic fracture deformity of the proximal fibula redemonstrated. Satisfactory alignment of th e total joint arthroplasty and patellar resurfacing. Expected postoperative soft tissue swelling with deep tissue air. IMPRESSION: Total joint arthroplasty with expected postoperative findings. ACT 112: Negative or not required by law. The above report was generated using voice recognition software. It may contain grammatical, syntax o r spelling errors. Electronically signed by: Justin Malone M.D. 11/06/2023 12:45 PM
[2023-11-06] MEDS ORDERED: diphenhydrAMINE 50 MG/ML VIAL IV PRN (13:48)
[2023-11-06] MEDS ORDERED: bisacodyL 10 MG SUPP PR PRN (13:48)
[2023-11-06] MEDS ORDERED: NALOXONE HCL 0.4 MG/1 ML VIAL/CARP IV PRN (13:48)
[2023-11-06] MEDS ORDERED: METOCLOPRAMIDE HCL INJ 5 MG/ML 2 ML VIAL IV PRN (13:48)
[2023-11-06] MEDS ORDERED: HYDROmorphone INJ 0.5 MG/0.5 ML SYR IV PRN (13:48)
[2023-11-06] MEDS ORDERED: MAGNESIUM HYDROXIDE SUSP 30 ML UDC PO PRN (13:48)
[2023-11-06] MEDS ORDERED: TAMSULOSIN HCL 0.4 MG CAP PO PRN (13:48)
[2023-11-06] MEDS: SODIUM CHLORIDE 0.9% 1,000 ML IV SCH (14:20)
[2023-11-06] MEDS: Scopolamine CHECK PATCH PLACEMENT SCH (15:47)
[2023-11-06] MEDS: ASCORBIC ACID 500 MG TAB PO SCH (17:16)
[2023-11-06] MEDS: FERROUS GLUCONATE 324 MG TAB PO SCH (17:16)
[2023-11-06] MEDS: KETOROLAC 30 MG/ML VIAL IV SCH (21:28)
[2023-11-06] MEDS: DOCUSATE SODIUM 100 MG CAP PO SCH (21:29)
[2023-11-06] MEDS: SENNA 8.6 MG TAB PO SCH (21:29)
[2023-11-06] MEDS: ASPIRIN 81 MG ECTAB PO SCH (21:30)
[2023-11-06] MEDS: oxyCODONE HCL IR 5 MG TAB (IMMEDIATE RELEASE) PO PRN (22:36)
[2023-11-06] MEDS: HYDROmorphone INJ 1 MG/ML SYRINGE IV PRN (23:30)
[2023-11-07 06:19] LABS: Hematocrit (blood only) 38.3 % (42.0-52.0); Hemoglobin 12.7 g/dl (14.0-18.0); Mean Corpuscular Hemoglobin 30.2 pg (25.0-34.0); Mean Corpuscular Hgb Conc 33.2 g/dL (32.0-36.0); Mean Corpuscular Volume 91.2 fL (80.0-100.0); Mean Platelet Volume 10.6 fL (9.4-12.4); Platelet Count 197 K/uL (130-400); RDW Coefficient of Variation 12.8 % (11.5-14.5); RDW Standard Deviation 42.5 fL (36.4-46.3); White Blood Count 16.96 K/ul (4.8-10.8)
[2023-11-07 06:23] LABS: BUN Creatinine Ratio 19.3 (10-20); Calcium 8.4 mg/dl (8.6-10.3); Creatinine Clr Calc Pharmacy 68.9 ml/min; Est GFR (Non-African American) 65.5 ml/min; Potassium 4.4 mmol/L (3.5-5.1)
[2023-11-07] MEDS: MULTIVITAMIN TAB PO SCH (07:45)
[2023-11-07] MEDS: dexAMETHasone 4 MG TAB PO SCH (07:45)
--- NOTE | 2023-11-07 09:09 | Orthopedic Progress Note ---
Date of Service November 07, 2023 Assessment & Plan (1) Status post total left knee replacement: Plan: The patient was educated regarding today's findings. Conservative care measures were discussed. I suspect his elevation white count is related to his surgery. I do not suspect an infectious process. His outer dressings were removed. The Silverlon was left in place. Tubigrip was applied for edema control. He will continue to use his knee immobilizer today and tomorrow when out of bed. It can be discontinued entirely on Friday morning. He may be discharged to home with home health services after he completes PT/OT this morning. Follow-up in the office in 2 weeks as scheduled for Zipline removal. Prescriptions for his postop medications will be sent to his pharmacy. Written discharge instructions were provided. Continue with frequent ice and elevation for pain and edema control. Call the office with any other concerns. Admission and Anticipated Discharge Date Admission Date: November 06, 2023 Subjective This 62 year old male is seen today in his room. He is 1 day status post left total knee arthroplasty. He states he is doing well. His pain is controlled. He has been up and ambulatory using his walker. He is hopeful for discharge to home today. He denies any chest pain, shortness of breath, nausea, vomiting, or abdominal pain. No other complaints. Review of Systems Review of Systems: Unchanged from yesterday. Physical Exam Physical Exam: General: Well-developed, well-nourished, middle-aged male, in no acute distress. Sitting in a bedside chair. Alert and oriented. He has finished his breakfast. Skin: Warm and dry with good turgor. No rashes. Postsurgical dressings are in place on the left leg. Upon removal of the David wrap and dressings, the there is no blood on the innermost dressings. His Silverlon is in place. Expected postoperative edema. No significant ecchymosis. Musculoskeletal: The patient has intact motor function of his hip, knee, and ankle. He is able to perform a straight leg raise. He can set his quadriceps. He has full terminal extension. Flexion to around 50 degrees without difficulty. Neurologic: Gross sensation is intact across the left leg by soft touch. Peripheral pulses are 2+. Results & Data Vital Signs (Past 12 Hours) Vital Signs Temp Pulse Resp BP Pulse Ox O2 Del Method 11/07/23 07:41 36.6 C 72 18 138/80 98 Room Air 11/07/23 02:26 36.5 C 61 18 108/63 93 Room Air 11/06/23 22:35 36.6 C 76 18 148/85 H 96 Room Air Laboratory Results CBC obtained this morning shows a white count of 16.96. H&H of 12.7 and 38.3. PRP shows normal electrolytes and BUN/creatinine. Morning glucose is 158.
--- NOTE | 2023-11-07 12:18 | Discharge Summary ---
Date of Service November 07, 2023 Discharge Data Procedures Performed Operation Date: 11/06/23 10:25 Actual Procedures p Left Total Knee Arthroplasty(Left) - Amadeo Cervantes MD Hospital Course (1) Status post total left knee replacement: Patient was kept in observation at [facility] after undergoing an elective left total knee arthroplasty by Dr. Cervantes on November 06, 2023. His surgery was performed with spinal anesthesia, IV sedation and peripheral nerve block to his left lower extremity. He tolerated the procedure well without any intraoperative complications. He was given IV Ancef 2 g prior to his procedure for surgical prophylaxis and this was continued for 24 hours after surgery. He was also given 1 g of IV TXA preoperatively and after the tourniquet was dropped in the operating room for bleeding prophylaxis. In the recovery room an x-ray of his left knee was obtained and showed a stable left knee prosthesis. He was allowed out of bed, weight-bear as tolerated with the assistance of a knee immobilizer and a walker. Physical therapy and Occupational Therapy consults were placed. His home medications were continued. He was given a regular diet. His CBC and BMP performed on postoperative day 1 were within normal limits. He did have a little drop in his H&H but did not require any blood transfusions as he remained asymptomatic. He was given oxycodone, Toradol, Tylenol and IV Dilaudid to use as needed for postoperative pain control. He was seen by case management for disposition needs. He did well out of bed with physical therapy and Occupational Therapy and was deemed safe for discharge to home. Follow-up instructions were provided. All questions were answered. Discharge instructions were reviewed. Patient was discharged to his home in stable condition on November 07, 2023
== END 2023-11-07 13:10 | disposition home health service (06) ==
LOC: ASU 08:43 → 3E 08:43